=== PATIENT | male | born 1945 | race Caucasian/White ===

== ENCOUNTER → 2017-03-14 | Outpatient (CLI) | payer MEDICARE, BC ==
[~2017-03-14] MED LIST: ASPIRIN81 M2 PO; ASPIRIN81 MG PO; FAMOTIDINE PO; MULTI-VITAMIN1 EAC1 PO; PRILOSEC20 MG PO
--- NOTE | ~2017-03-14 | MR165 ---
[facility]. [facility] A Service of [facility] RADIOLOGY TEXT RESULTS PATIENT: YESSY LONGORIA LOCATION: [facility] : 43 UNIT #: [id number] AGE: [address]: Hesham Harris MD SEX: M ORDER DR: [id number] [address] [address] [id number] O MR#: [id number] Acc #: [id number] NAME: YESSY LONGORIA : 1945 SEX: M STUDY DATE/TIME: 03/14/2017 8:52 UNIT: [facility] ROOM: STUDY DESCRIPTION: MR Shoulder Wo Contrast Rt Attending Physician: Hesham Harris M.D. Referring Physician: Hesham Harris M.D. Ordering Physician: Hesham Harris M.D. Primary Care Physician: Matthew Yap M.D. MRI CENTER REPORT This report is preliminary unless electronic signature is present. EXAM Right shoulder MRI without contrast 03/14/2017 HISTORY A 71-year-old male with right shoulder pain and limited range of motion for 9 months. No specific injury. No prior right shoulder surgery COMPARISON STUDIES Right shoulder x-rays 05/22/2016 TECHNIQUE Routine unenhanced multiplanar, multisequence high field MR imaging of the right shoulder was performed. FINDINGS There is a full-thickness tear involving the anterior insertional supraspinatus tendon. The tear measures approximately 1.8 cm in AP dimension with 1.4 cm of retraction. No significant supraspinatus muscle atrophy. There is rtfo-[id number]-yaemqfac infraspinatus tendinopathy without tear. Teres minor and subscapularis tendons are intact. Long biceps tendon is intact well positioned in the bicipital groove. No evidence of a labral tear. Glenohumeral articular cartilage is intact. No significant glenohumeral effusion. Mild degenerative change of the acromioclavicular joint. No subacromial spur. Bone marrow signal is within expected limits. Visualized musculature is unremarkable. [facility] A Service of [facility] RADIOLOGY TEXT RESULTS PATIENT: YESSY LONGORIA LOCATION: [facility] : 43 UNIT #: [id number] AGE: [address]: Hesham Harris MD SEX: M ORDER DR: 1. Full-thickness tear involving the anterior insertional supraspinatus tendon. The tear measures approximately 1.8 cm in AP dimension with 1.4 cm retraction. No significant supraspinatus muscle atrophy. 2. Unwe-yf-ltvughdq infraspinatus tendinopathy without tear. 3. No significant labral pathology. 4. Mild acromioclavicular joint arthrosis Dictated by... Darren Magallon M.D. THIS IS AN ELECTRONICALLY VERIFIED REPORT Darren Magallon M.D. at 03/15/2017 3:43 PM Gilbert TD: 03/15/2017 13:08 JOB #: [id number] MRI CENTER REPORT Page 1 of 1
== END | disposition home or self-care (01) ==
LOC: SMRI 08:03
DX: M25.511 Pain in right shoulder (principal); M75.121 Complete rotator cuff tear or rupture of right shoulder, not specified as traumatic; M75.81 Other shoulder lesions, right shoulder; M19.011 Primary osteoarthritis, right shoulder
CPT/HCPCS: 73221